=== PATIENT | male | born 1950 | race Caucasian/White ===

== ENCOUNTER 2016-04-21 09:24 | Emergency (ER) | payer OTHER, BC ==
[~2016-04-21] VITALS: Ht 182.9 cm; Wt 94.2 kg
[~2016-04-21 09:24] MED LIST: ACTIGALL300 MG PO; CALTRATE-600 W1 EAC1 PO; CENTRUM PO; CENTRUM SILVER1 EACH PO; COUMADIN,JANTO2.5 MG PO; COUMADIN,JANTOVE5 MG PO; FLOMAX0.4 M1 PO; FLONASE16 G1 BOTH NARES; LASIX40 MG PO; LEVAQUIN750 MG PO; LOTREL 5/401 CAPSULE PO; LOVAZA1 GM PO; METOPROLOL SUCC50 MG PO; METOPROLOL TART25 MG PO; PRAVACHOL40 MG PO; RAPAMUNE1 MG PO; RAPAMUNE2 MG PO; URSO FORTE500 M1 PO; WARFARIN SODIUM3 MG PO
[2016-04-21 10:15] LABS: ADD MIUA? YES; BILIRUBIN NEGATIVE; BLOOD LARGE; COLOR YELLOW ((YELLOW)); GLUCOSE (STRIP) NEGATIVE; KETONES NEGATIVE; LEUKOCYTES NEGATIVE; NITRITE NEGATIVE; PH, URINE 5.5 (5-8); PROTEIN (STRIP) >=300; SPECIFIC GRAVITY 1.024 (1.000-1.030); UROBILINOGEN 0.2 MG/DL (0.2-1.0)
[2016-04-21 10:23] LABS: EOSINOPHIL (%) 0.9 % (0-5); EOSINOPHIL COUNT 0.1 K/uL (0-0.3); IMMATURE GRANULOCYTE (%) 0.4 % (0.0-0.7); IMMATURE GRANULOCYTE COUNT 0.5 K/uL; LYMPHOCYTE COUNT 3.1 K/uL (1.0-2.8); MCHC 34.8 G/DL (30.0-36.0); MEAN PLAT.VOLUME 9.8 uM^3 (9.0-12.4); MONOCYTE (%) 4.7 % (3-12); MONOCYTE COUNT 0.6 K/uL (0-0.8); PLATELET COUNT 233 K/uL (156-360); RBC DIS.WIDTH-CV 14.1 % (11.8-14.6); RBC DIS.WIDTH-SD 41.9 % (39-53); RED BLOOD COUNT 5.03 M/uL (4.00-5.50); WHITE BLOOD COUNT 12.8 K/uL (4.1-10.2)
[2016-04-21 10:24] LABS: MCV 83.5 FL (86-99)
[2016-04-21 10:29] LABS: INTER. NORMALIZED RATIO 1.8; PROTHROMBIN TIME 18.4 (9.2-11.2)
[2016-04-21 10:36] LABS: CHLORIDE 106 mEq/L (99-109); SODIUM 139 mEq/L (136-147)
[2016-04-21 10:39] LABS: GLUCOSE 183 mg/dL (70-99)
[2016-04-21 10:40] LABS: BACTERIA NONE SEEN; CASTS NONE SEEN /LPF; CRYSTALS NONE SEEN; EPITHELIAL CELLS RARE; MUCUS NONE SEEN; PATHOLOGICAL CAST NONE SEEN; RED BLOOD CELLS 30-40 /HPF (0-5); SMALL ROUND CELL NONE SEEN; UCUL ADDED? NO; WHITE BLOOD CELLS 0-5 /HPF (0-5); YEAST-LIKE CELL NONE SEEN
[2016-04-21 10:40] LABS: ANION GAP 13 MEQ/L (2-14); TOTAL BILIRUBIN 0.5 mg/dL (0.0-1.0)
[2016-04-21 10:42] LABS: ALKALINE PHOSPHATASE 93 IU/L (3-129); GFR ESTIMATE (CALCULATED) > 59 mL/min/
[2016-04-21 10:43] LABS: UREA NITROGEN (BUN) 33 mg/dL (9-23)
[2016-04-21] MEDS ORDERED: NAPROXEN500 MG PO (11:33)
[2016-04-21] MEDS ORDERED: FLOMAX0.4 MG PO (12:18)
[2016-04-21] MEDS ORDERED: ZOFRAN ODT4 MG PO (12:18)
[2016-04-21 13:12] VITALS: BP 137/81
== END 2016-04-21 13:14 | disposition home or self-care (01) ==
LOC: EME 09:24
PROVIDERS: Physician Assistant
DX: N20.0 Calculus of kidney (principal); Z94.4 Liver transplant status; I10 Essential (primary) hypertension; Z79.01 Long term (current) use of anticoagulants; Z87.891 Personal history of nicotine dependence
CPT/HCPCS: 74176; 80053; 81003; 85025; 85610; 99281; 99285; J1885; J3010; J7120

== ENCOUNTER 2016-11-02 20:28 | Emergency (ER) | payer OTHER, BC ==
[~2016-11-02] VITALS: Ht 182.9 cm; Wt 95.2 kg
[~2016-11-02 20:28] MED LIST changes: +FLOMAX0.4 MG PO; +NAPROXEN500 MG PO; +ZOFRAN ODT4 MG PO
[2016-11-02 21:41] LABS: PROTHROMBIN TIME 33.9 SEC (10.2-12.9)
[2016-11-02 22:04] LABS: HEMATOCRIT 40.5 % (38.0-50.0); MCH 28.3 PG (29.0-34.0); MCHC 33.1 G/DL (30.0-36.0); MCV 85.6 FL (86-99); MEAN PLAT.VOLUME 9.7 uM^3 (9.0-12.4); PLATELET COUNT 203 K/uL (156-360); RBC DIS.WIDTH-CV 13.1 % (11.8-14.6); RBC DIS.WIDTH-SD 40.2 % (39-53); RED BLOOD COUNT 4.73 M/uL (4.00-5.50)
[2016-11-02 22:59] VITALS: BP 132/92
[2016-11-02] MEDS ORDERED: KEFLEX500 MG PO (23:06)
[2016-11-02] MEDS ORDERED: ROXICODONE5 MG PO (23:06)
== END 2016-11-02 23:21 | disposition home or self-care (01) ==
LOC: EME 20:28
PROVIDERS: Physician Assistant
PROC: 2Y41X5Z Packing of Nasal Region using Packing Material (ICD-10-PCS; principal; 2016-11-02)
DX: R04.0 Epistaxis (principal); Z79.01 Long term (current) use of anticoagulants; I10 Essential (primary) hypertension; Z94.4 Liver transplant status; Z87.891 Personal history of nicotine dependence
CPT/HCPCS: 85027; 85610; 85730; 99281; 99284

== ENCOUNTER 2016-11-04 16:23 | Emergency (ER) | payer OTHER, BC ==
[~2016-11-04] VITALS: Ht 182.9 cm; Wt 93.8 kg
[~2016-11-04 16:23] MED LIST changes: +KEFLEX500 MG PO; +ROXICODONE5 MG PO
[2016-11-04 18:16] VITALS: BP 127/92
== END 2016-11-04 18:16 | disposition home or self-care (01) ==
LOC: RME 16:23 → EME 16:23 → RME 18:16
DX: R04.0 Epistaxis (principal); Z79.01 Long term (current) use of anticoagulants; Z86.718 Personal history of other venous thrombosis and embolism; Z94.4 Liver transplant status; I10 Essential (primary) hypertension
CPT/HCPCS: 99281; 99283